=== PATIENT | male | born 1975 | race Caucasian/White ===

== ENCOUNTER 2016-04-11 00:25 | Emergency (ER) | payer MEDICARE ==
[~2016-04-11] VITALS: Ht 172.7 cm; Wt 68.0 kg
[2016-04-11 00:33] VITALS: BP 134/81; PULSE 89; RESP 16; TEMP 98.2; O2SAT 97
--- NOTE | 2016-04-11 00:33 | NUR ---
Pt wheeled to bed 6. Report given to GILBERTO Lopez.
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
--- NOTE | 2016-04-11 00:36 | NUR ---
ER Dr.DE CLINE at bedside examining patient.
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
[2016-04-11] MEDS ORDERED: IBUPROFEN 800 MG TABLET PO ONE (00:45)
[2016-04-11 02:05] VITALS: BP 134/81; PULSE 89; RESP 16; TEMP 98.2; O2SAT 97
--- NOTE | 2016-04-11 02:05 | NUR ---
Patient given written and verbal discharge instructions and verbalizes understanding. ER MD discussed with patient the results and treatment provided. Patient in stable condition. ID arm band removed. NO Rx of given. Patient educated on pain management and to follow up with PMD. Pain Scale 0/10. Opportunity for questions provided and answered.
== END 2016-04-11 02:05 | disposition home or self-care (01) ==
LOC: SED 00:25
DX: S01.01XA Laceration without foreign body of scalp, initial encounter (principal); G81.91 Hemiplegia, unspecified affecting right dominant side; F17.210 Nicotine dependence, cigarettes, uncomplicated; Z86.73 Personal history of transient ischemic attack (TIA), and cerebral infarction without residual deficits; X58.XXXA Exposure to other specified factors, initial encounter; Y93.01 Activity, walking, marching and hiking; Y99.8 Other external cause status; Y92.89 Other specified places as the place of occurrence of the external cause
CPT/HCPCS: 99283

== ENCOUNTER 2023-01-31 16:03 | Inpatient (IN) | payer MEDICAID, MEDICARE ==
[~2023-01-31] VITALS: Ht 180.3 cm; Wt 68.0 kg
[2023-01-31 16:03] VITALS: BP_SYST 125; PULSE 80; RESP 19; TEMP 97.4; O2SAT 98
[2023-01-31] MEDS ORDERED: HYDROcodone/ACETAMIN 5-325 MG TAB (NORCO/ VICODIN) PO ONE (16:30)
[2023-01-31] MEDS ORDERED: HYDROcodone/ACETAMIN 5-325 MG TAB (NORCO/ VICODIN) PO PRN (19:45)
[2023-01-31] MEDS ORDERED: MUPIROCIN 2% TOPICAL OINTMENT 22 GM NS PRN (20:00)
[2023-01-31] MEDS ORDERED: DOCUSATE SODIUM 100 MG CAPSULE PO PRN (20:00)
[2023-01-31] MEDS ORDERED: NACL 0.9% 1,000 ML IV SCH (20:00)
[2023-01-31] MEDS ORDERED: ZOLPIDEM TARTRATE 5 MG TABLET PO PRN (20:00)
[2023-01-31] MEDS ORDERED: MAGNESIUM SULFATE 50 ML IV PRN (20:00)
[2023-01-31] MEDS ORDERED: ACETAMINOPHEN 500 MG TABLET PO PRN ×3 (20:00)
[2023-01-31] MEDS ORDERED: ONDANSETRON HCL 4 MG/2 ML VIAL IVP PRN (20:00)
[2023-01-31] MEDS ORDERED: NALOXONE HCL 0.4 MG/ML AMP (NARCAN) IVP PRN ×2 (20:00)
[2023-01-31] MEDS ORDERED: MORPHINE 2 MG/ML INJ. SYRINGE IVP PRN ×2 (20:00)
[2023-01-31] MEDS ORDERED: POTASSIUM CHLORIDE 20 MEQ TABLET.ER PO PRN (20:00)
[2023-01-31] MEDS ORDERED: LORazepam 2 MG/ML VIAL IVP PRN (20:00)
[2023-01-31 22:02] VITALS: O2SAT 98
[2023-01-31 22:05] VITALS: BP_SYST 125; PULSE 80; RESP 19; TEMP 97.4
== END 2023-02-01 04:26 | disposition left against medical advice (07) | DRG 342 ==
LOC: SED 16:03 → SMU 19:32
PROVIDERS: ADMIT General Practice; ATTEND General Practice
PROC: 2W3RX1Z Immobilization of Left Lower Leg using Splint (ICD-10-PCS; principal; 2023-01-31)
DX: S92.002A Unspecified fracture of left calcaneus, initial encounter for closed fracture (principal); R26.2 Difficulty in walking, not elsewhere classified; Z53.29 Procedure and treatment not carried out because of patient's decision for other reasons; W11.XXXA Fall on and from ladder, initial encounter; Z79.899 Other long term (current) drug therapy; Z88.6 Allergy status to analgesic agent; Y93.89 Activity, other specified; Y92.89 Other specified places as the place of occurrence of the external cause; Y99.8 Other external cause status
CPT/HCPCS: 73650-TC; 73700-TC; 76376; 99285